=== PATIENT | female | born 1975 | race African-American/Black ===

== ENCOUNTER → 2022-01-02 10:10 | Outpatient (CLI) | payer BC, SELFPAY ==
--- NOTE | ~2022-01-02 | MM_ITS ---
EXAMINATION: MM screening brenda BI w nita HISTORY: Screening mammogram TECHNIQUE: Craniocaudal and mediolateral oblique 3-D tomosynthesis images were obtained and synthetic 2-D images were generated. CAD analysis was submitted and interpreted. COMPARISON: No prior mammogram is available for comparison at this institution. BREAST PARENCHYMAL COMPOSITION: There are scattered areas of fibroglandular density. FINDINGS: RIGHT BREAST: There is a 5 mm mass in the middle third of the outer breast best appreciated on the cr aniocaudal view. LEFT BREAST: There is no evidence of suspicious mass, calcification, or architectural distortion to s uggest malignancy. IMPRESSION: 1. Right breast mass which may represent the patient's baseline however no comparison is currently av ailable. 2. Comparison with prior mammograms is necessary. BI-RADS Category 0: Incomplete: Needs comparison with prior mammograms. Reviewed, dictated and finalized at location A. E MAIL SYSTEM ADMINISTRATOR IMPRESSION: 1. Right breast mass which may represent the patient's baseline however no comp arison is currently available. 2. Comparison with prior mammograms is necessary. BI-RADS Category 0: Incomplete: Needs comparison with prior mammograms.
== END ==
PROVIDERS: Visit Provider Obstetrics & Gynecology
DX: Z12.31 Encounter for screening mammogram for malignant neoplasm of breast (principal); R92.8 Other abnormal and inconclusive findings on diagnostic imaging of breast
CPT/HCPCS: 77063; 77067

== ENCOUNTER → 2022-02-03 08:23 | Outpatient (CLI) | payer BC, SELFPAY ==
--- NOTE | ~2022-02-03 | MMUS_ITS ---
EXAMINATION: MM diagnostic brenda RT w nita, US breast RT limited HISTORY: Right breast mass TECHNIQUE: Additional 3-D tomosynthesis images of the right breast were performed and synthetic 2-D i mages were generated. CAD analysis was submitted and interpreted. High resolution right breast ultras ound was performed. COMPARISON: 01/02/2022, 01/17/2019 BREAST PARENCHYMAL COMPOSITION: There are scattered areas of fibroglandular density. FINDINGS: MAMMOGRAPHIC FINDINGS: There is a 7 mm x 3 mm oval, obscured, equal density mass in the middle third of the outer breast at the 9:00 location 7.5 cm from the nipple. ULTRASOUND: There is a 5 mm x 2 mm oval, circumscribed, parallel, complex cystic and solid mass at the 10:00 loca tion 6 cm with no posterior features or internal vascularity corresponding to the mammographic findin g in question. IMPRESSION: 1. Probably benign right breast mass. 2. Recommend 6 month follow-up right diagnostic mammogram and ultrasound. BI-RADS category 3, probably benign findings. Reviewed, dictated and finalized at location A. IMPRESSION: 1. Probably benign right breast mass. 2. Recommend 6 month follow-up right diagnostic mammogram and ultrasound. BI-RADS category 3, probably benign findings.
== END ==
PROVIDERS: PCP Physician Assistant; Visit Provider Obstetrics & Gynecology
DX: R92.8 Other abnormal and inconclusive findings on diagnostic imaging of breast (principal)
CPT/HCPCS: 76642; 77061; 77065; G0279

== ENCOUNTER 2025-06-09 09:55 | Outpatient (CLI) | payer OTHER, SELFPAY ==
--- NOTE | ~2025-06-09 | MM_ITS ---
EXAMINATION: MM screening brenda BI w nita HISTORY: Screening TECHNIQUE: Craniocaudal and mediolateral oblique 3-D tomosynthesis images were obtained and synthetic 2-D images were generated. CAD analysis was submitted and interpreted. COMPARISON: Comparison to multiple prior studies sequentially, with oldest reviewed study dated 01/17. BREAST PARENCHYMAL COMPOSITION: Not dense: There are scattered areas of fibroglandular density. FINDINGS: There is no evidence of suspicious mass, calcification, or architectural distortion to sugg est malignancy in either breast. There has been no suspicious interval change. IMPRESSION: 1. No mammographic evidence of malignancy. 2. Recommend routine screening mammography in one year. BI-RADS Category 1: Negative Reviewed, dictated and finalized at location B.
--- OUTSIDE RECORDS SUMMARY | 2025-06-09 09:59 | XMS_ITS | Clinical Summary ---
Author Organization [facility] Address [address] [place] [address] Care Team Providers Care Registered Nurses Name Role Phone Elvis Robin MD Primary Care Provider [phone] Source Comments [facility],non-select specialty hospital Affiliates and Associated Physician Practices is amultiple site organization consisting of ambulatory clinics and hospital sitesin [place], [place], [place]. This disclosure is being madepursuant to the Care Everywhere program and may not contain all information available regarding this patient. 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 Family History Medical History Relation Name Comments High Cholesterol Father High Cholesterol Mother Relation Name Status Comments Father Mother Social History Tobacco Use Types Packs/Day Years Used Date Smoking Tobacco: Never Smokeless Tobacco: Never Alcohol Use Standard Drinks/Week Comments No 0 (1 standard drink = 0.6 oz pur e alcohol) Comments Unknown Sex and Gender Information Value Date Recorded Sex Assigned at Not on file Legal Sex Female 5:34 PM SOLAR INSTALLATION MANAGER Gender Identity Not on file Sexual Orientation Not on file Last Filed Vital Signs Vital Sign Reading Time Taken Comments Blood Pressure 149/86 12/18/2017 10:19 AM SOLAR INSTALLATION MANAGER Pulse 93 12/18/2017 10:19 AM SOLAR INSTALLATION MANAGER Temperature 37.4 C (99.4 F) 11/28/2016 10:01 AM SOLAR INSTALLATION MANAGER Respiratory Rate 14 11/28/2016 10:01 AM SOLAR INSTALLATION MANAGER Oxygen Saturation 99% 05/23/2016 10:46 AM CDT Inhaled Oxygen Concentration - - Weight 60.8 kg (134 lb) 12/18/2017 10:19 AM SOLAR INSTALLATION MANAGER Height 157.5 cm (5' 2) 12/18/2017 10:19 AM SOLAR INSTALLATION MANAGER Body Mass Index 24.51 12/18/2017 10:19 AM SOLAR INSTALLATION MANAGER Plan of Treatment Health Maintenance Due Date Last Done Comments COLOGUARD (AGES 45-75) - COL ON CA SCREENING 1974 COLON MONITORING 1974 COLONOSCOPY - COLON CA SCREENING 1974 CT COLONOGRAPHY - COLON CA SCREENING 1974 Colorectal Cancer Screening 1974 FIT - COLON CA SCREENING 1974 FLEX SIG - COLON CA SCREENING 1974 LIPID TESTING 1974 HIV SCREENING 1989 HEPATITIS C SCREENING 01/23/1992 DTAP/TDAP/TD VACCINES (1 - Tdap) 1993 HEPATITIS B VACCINE (1 of 3 - 19+ 3-dose series) 1993 MAMMOGRAM 01/17/2021 01/17/2019 PNEUMOCOCCAL VACCINE 50+ (1 of 1 - PCV) 01/28/2024 ZOSTER VACCINE (1 of 2) 01/28/2024 COVID-19 VACCINE (1 - 2023-2 5 season) 2024 DEPRESSION SCREENING 11/23/2024 INFLUENZA VACCINE (#1) 2025 HIB VACCINE Aged Out No longer eligi ble based on patient's age to complete this topic HPV VACCINE Aged Out No longer eligi ble based on patient's age to complete this topic MENINGOCOCCAL (Group B) VACC INE SHARED DECISION-MAKING Aged Out No longer eligibl e based on patient's age to complete this topic MENINGOCOCCAL GROUPS A/C/Y/W VACCINE Aged Out No longer eligible b ased on patient's age to complete this topic Insurance [employer] Care Teams Registered Nurses Relationship Specialty Start Date End Date Elvis Robin MD [address] [place] [address] [address] [place] [phone] PCP - General 08/11/13
--- OUTSIDE RECORDS SUMMARY | 2025-06-09 09:59 | XMS_ITS | Clinical Summary ---
Author Organization [facility] Address [address] [place] [address] Care Team Providers Care Line Analyst Name Role Phone Naomie Hurst PA-C Primary Care Provider [phone] Allergies No known active allergies Medications Blood Pressure Monitor KitIndications:Elev ated blood pressure reading Take blood pressure daily 1 kit Active multi vitamin/minerals (THERA-M ENHANCED) tablet Take 1 tablet by mouth daily. Active rosuvastatin (CRESTOR) 5 MG tabletIndications:H yperlipidemia, unspecified hyperlipidemia type TAKE 1 TABLET(5 MG) BY MOUTH DAILY 90 tablet 1 Active Active Problems Problem Noted Date Diagnosed Date Medication monitoring encounter 10/13/2024 Refused influenza vaccine 10/05/2023 Hot flashes 10/05/2023 White coat syndrome without hypertension 022 Hyperlipidemia, unspecified hyperlipidemia type 07/29/2021 Vitamin D deficiency 07/29/2021 Resolved Problems Problem Noted Date Diagnosed Date Resolved Date Screening for colon cancer 10/14/2023 1 12/27/2022 Malignant neoplasm of palate ([facility]) 12/14/2013 07/30/2021 Encounters Date Type Department Care Team Description 04/11/2025 9:40 AM CDT Office Visit [facility] Family Medicine - [place] [phone] Naomie Hurst PA-C Follow Up (Follow up ) 04/11/2025 Travel from Last 3 Months Family History Medical History Relation Comments No Known Problems Brother 1 No Known Problems Brother 2 No Known Problems Daughter Hyperlipidemia Father Hyperlipidemia Mother Relation Status Comments Brother 1 Alive Brother 2 Alive Daughter Alive Father Alive Mother Alive Social History Tobacco Use Types Packs/Day Years Used Date Smoking Tobacco: Never Smokeless Tobacco: Never Tobacco Cessation:Counseling Given: No Alcohol Use Standard Drinks/Week Comments Not Currently 0 (1 standard drink = 0.6 oz pur e alcohol) PHQ-2 Answer Date Recorded Patient Health Questionnaire-2 Score 0 04/11/2025 Comments No Sex and Gender Information Value Date Recorded Sex Assigned at Female 09/19/2022 8:41 AM CDT Legal Sex Female 7:25 PM CDT Gender Identity Female 09/19/2022 8:41 AM CDT Sexual Orientation Straight 09/19/2022 8: 41 AM CDT Last Filed Vital Signs Vital Sign Reading Time Taken Comments Blood Pressure 120/80 04/11/2025 9:39 AM CDT Pulse 84 04/11/2025 9:39 AM CDT Temperature 35.7 C (96.3 F) 04/11/2025 9:39 AM CDT Respiratory Rate 18 04/11/2025 9:39 AM CDT Oxygen Saturation 98% 04/11/2025 9:39 AM CDT Inhaled Oxygen Concentration - - Weight 59.1 kg (130 lb 3.2 oz) 04/11/2025 9:39 A M CDT Height 157.5 cm (5' 2) 04/11/2025 9:39 AM CDT Body Mass Index 23.81 04/11/2025 9:39 AM CDT Plan of Treatment Upcoming Encounters Date Type Department Care Team (Late st Contact Info) Description 04/12/2026 9:20 AM CDT Office Visit [facility] Family Medicine - [place] [address] [place] [phone] Naomie Hurst PA-C [address] [place] [address] Health Maintenance Due Date Last Done Comments Cervical Cancer Screening Pap Smear (Age 30 to 64) Every 3 Years 1974 Annual Physical 1977 DTaP, Tdap and Td Vaccines (1 - Tdap) 1993 Hepatitis B Vaccines (1 of 3 - 19+ 3-dose series) 1993 Cervical Cancer Screening Pap with HPV Testing (Age 30 to 64) Every 5 Years 01/28/2004 Mammogram Screening 01/17/2021 01/17/2019, 01/17/2019, 10/11/2018, Additional history exists Pneumococcal Vaccine: 50+ Years (1 of 1 - PCV) 01/28/2024 Zoster Vaccines (1 of 2) 01/28/2024 Cervical Cancer Screening with HPV 10/13/2025 Postponed from 01/28/2004 (Going to Outside Clinic) COVID-19 Vaccine ( - season) 2025 Postponed from 07/24/2024 (Going to Outside Clinic) Colorectal Cancer Screening Colonoscopy (10 Years) 02/03/2034 02/04/2024 Hepatitis C Completed 04/06/2024 PHQ-2 (Physician [place]) Completed 04/11/2025 Meningococcal B Vaccine Aged Out No l onger eligible based on patient's age to complete this topic Meningococcal Vaccine Aged Out No maribeth don eligible based on patient's age to complete this topic RSV Immunizations Under 20 Months Aged Out No longer eligible based on patient's age to complete this topic Procedures Procedure Name Priority Date/Time Associated Diagnosis Comments VITAMIN D, 25 OH 04/05/2025 9:03 AM CDT LIPID PANEL Routine 04/05/2025 9:03 AM CDT Hyperlipidemia, unspecified hyperlipidemia type COMPREHENSIVE METABOLIC PANEL Routine 04/05/2025 9:03 AM CDT Medication monitoring encounter CBC W/DIFF AUTOMATED Routine 04/05/2025 9:03 AM CDT Screening for deficiency anemia HEPATITIS C ANTIBODY W/RFX TO HCV RNA Routine 04/06/2024 9:21 AM CDT Need for hepatitis C screening test MG DIAG W RAFY RT DIGI Routine 01/17/2019 9:28 AM EDGER RUNNER Mass of right breast from Last 3 Months or Most Recently Relevant to Health Maintenance Results * (ABNORMAL) COMPREHENSIVE METABOLIC PANEL (04/05/2025 9:03 AM CDT) [facility] GLUCOSE 94 70 - 99 mg/dL [facility] BUN 13 6 - 24 mg/dL [facility] CREATININE S/P/B 0.81 0.57 - 1.00 mg/dL [facility] GFR ESTIMATE 88 >59 mL/min/1.7 3 [facility] 1 BUN CREATININE RATIO 16 9 - 23 [facility] 1 SODIUM S/P/B 141 134 - 144 mmol/L [facility] 1 POTASSIUM S/P/B 4.2 3.5 - 5.2 mmol/L [facility] 1 CHLORIDE S/P/B 101 96 - 106 mmol/L [facility] CO2 24 20 - 29 mmol/L [facility] 1 CALCIUM S/P/B 10.0 8.7 - 10.2 mg/dL [facility] 1 TOTAL PROTEIN S/P/B 7.2 6.0 - 8.5 g/dL [facility] 1 ALBUMIN S/P/B 4.7 3.8 - 4.9 g/dL [facility] 1 GLOBULIN 2.5 1.5 - 4.5 g/dL [facility] 1 BILIRUBIN TOTAL S/P/B 0.4 0.0 - 1.2 mg/dL [facility] 1 ALKALINE PHOSPHATASE S/P/B 133(H) 44 - 121 IU/L [facility] AST 14 0 - 40 IU/L [facility] ALT 10 0 - 32 IU/L [facility] 1 04/05/2025 9:03 AM CDT 04/05/2025 Narrative [facility] - 04/06/2025 7:09 AM CDT Performed at: 01 - [facility] [id number] Information Resources Manager: Antonio Lyle PhD, Phone: [phone] us Naomie Hurst PA-C LABORATORY Final Resu lt [facility] [address] [place] [address] [facility] * LIPID PANEL (04/05/2025 9:03 AM CDT) CHOLESTEROL 180 100 - 199 mg/dL [facility] TRIGLYCERIDES 48 0 - 149 mg/dL [facility] HDL 72 >39 mg/dL [facility] VLDL CALCULATION 10 5 - 40 mg/dL [facility] 1 LDL (CALCULATED) 98 0 - 99 mg/dL [facility] 1 04/05/2025 9:03 AM CDT 04/05/2025 Narrative [facility] - 04/06/2025 7:09 AM CDT Performed at: 01 - [facility] [id number] Information Resources Manager: Antonio Lyle PhD, Phone: [phone] Naomie Hurst PA-C LABORATORY Final Resu lt [facility] [address] [place] [address] [facility] * CBC W/DIFF AUTOMATED (04/05/2025 9:03 AM CDT) Pathologist [facility] WBC 5.3 3.4 - 10.8 x10E3/uL [facility] RBC 4.47 3.77 - 5.28 x10E6/uL [facility] HGB 13.4 11.1 - 15.9 g/dL [facility] 1 HCT 41.9 34.0 - 46.6 % [facility] 1 MCV 94 79 - 97 fL [facility] 1 MCH 30.0 26.6 - 33.0 pg [facility] 1 MCHC 32.0 31.5 - 35.7 g/dL [facility] 1 RDW 12.2 11.7 - 15.4 % [facility] 1 PLATELET COUNT 249 150 - 450 x10E3/uL [facility] 1 NEUTROPHILS % 56 Not Estab. % [facility] LYMPHOCYTES % 33 Not Estab. % [facility] 1 MONOCYTES % 9 Not Estab. % [facility] 1 EOSINOPHILS % 1 Not Estab. % [facility] 1 BASOPHILS % 1 Not Estab. % [facility] 1 ABS. NEUTROPHILS 2.9 1.4 - 7.0 x10E3/uL [facility] 1 ABS. LYMPHOCYTES 1.8 0.7 - 3.1 x10E3/uL [facility] 1 MONOCYTES 0.5 0.1 - 0.9 x10E3/uL [facility] 1 ABS. EOSINOPHILS 0.0 0.0 - 0.4 x10E3/uL [facility] 1 ABS. BASOPHILS 0.1 0.0 - 0.2 x10E3/uL [facility] 1 ABS. IMMATURE GRANULOCYTES 0 Not Estab. % [facility] 1 ABS. IMMATURE GRANULOCYTES 0.0 0.0 - 0.1 x10E3/uL [facility] 1 04/05/2025 9:03 AM CDT 04/05/2025 Narrative [facility] - 04/06/2025 7:09 AM CDT Performed at: 01 - [facility] [id number] Information Resources Manager: Antonio Lyle PhD, Phone: [phone] us Naomie Hurst PA-C LABORATORY Final Resu lt [facility] [address] [place] [address] [facility] * VITAMIN D, 25 [place] (04/05/2025 9:03 AM CDT) Pathologist [facility] VITAMIN D 25 HYDROXY S/P/B 41.9 30.0 - 100.0 ng/mL [facility] 1 Comment: Vitamin D deficiency has been defined by the [place] of Medicine and an Endocrine Society practice guideline as a level of serum 25-OH vitamin D less than 20 ng/mL (1,2). The Endocrine Society went on to further define vitamin D insufficiency as a level between 21 and 29 ng/mL (2). 1. IOM ([place] of Medicine). 2010. Dietary reference intakes for calcium and D. [place]: The National Academies Press. 2. Danelle MF, Skylar [place], Norm SHOEMAKER, et al. Evaluation, treatment, and prevention of vitamin D deficiency: an Endocrine Society clinical practice guideline. JCEM. 2010; 96(7):1911-30. 04/05/2025 9:03 AM CDT 04/05/2025 Narrative [facility] - 04/06/2025 7:09 AM CDT Performed at: [facility] [id number] Information Resources Manager: Antonio Lyle PhD, Phone: [phone] Naomie SAHUC LABORATORY Final Resu lt Performing Organization Address [facility] Phone Number [facility] [address] [place] [address] [facility] * HEPATITIS C ANTIBODY W/RFX TO HCV RNA (04/06/2024 9:21 AM CDT) HEPATITIS C AB Non Reactive Non Reacti [facility] 1 INTERPRETATION Comment [facility] 1 Comment: Not infected with HCV unless early or acute infection is suspected (which may be delayed in an immunocompromised individual), or other evidence exists to indicate HCV infection. 04/06/2024 9:21 AM CDT 04/06/2024 Narrative [facility] - 04/07/2024 11:37 AM CDT Performed at: [address] [id number] Information Resources Manager: Antonio Lyle PhD, Phone: [phone] Result [facility] Naomie SAHUC LABORATORY Final Resu lt Performing Organization Address [facility] Phone Number [facility] [address] [place] [id number] [facility] * MG DIAG W RAFY RT DIGI (01/17/2019 9:28 AM EDGER RUNNER) Anatomical Region Laterality Modality Breast Right Mammography 01/17/2019 9:50 AM EDGER RUNNER Impressions 01/17/2019 9:54 AM EDGER RUNNER =====IMPRESSION:===== Mixed echogenicity lesion 10:30 position right breast slightly decreased in size. However, partially defined hypoechoic lesion posteriorly to the mixed echogenicity lesion, and measuring up to 1.8 cm. This second area has some posterior acoustical shadowing. This area is indeterminate. Rebiopsy should be considered. ASSESSMENT: ACR BI-RADS Category 4B - Suspicious (intermediate). RECOMMENDATION: 1: Needle biopsy right COMMENTS: Narrative 01/17/2019 9:54 AM EDGER RUNNER EXAMINATION: Digital right diagnostic mammogram with 3-D tomosynthesis and limited right breast ultrasound. [id number] EXAM DATE/TIME: 01/17/2019 8:47 AM REASON FOR EXAM: FOLLOW UP Recent benign biopsies right breast. Persistent focal parenchymal asymmetry right breast. Short-term follow-up. COMPARISON: Right mammographic images dating back to May 2018.] Ultrasounds dating back to May 2018. TECHNIQUE: Digital diagnostic mammography of the right breast was performed in addition to 3-D Tomosynthesis technique. This study was read with the assistance of a computer-aided detection system. TISSUE DENSITY: The breast tissue contains scattered fibroglandular densities. FINDINGS: 2 biopsy clips are again noted within the right breast. Some associated irregular shaped tissue is seen adjacent to the biopsy clip upper outer quadrant right breast approximately 10:30 position. This is similar appearance to prior post biopsy mammogram. No new mass lesion. No suspicious calcifications. Ultrasound imaging right breast 10:30 position 7 cm from the nipple was again performed. Mixed echogenicity lesion is again noted. This previously measured up to 2.13 cm. Currently measuring up to 2.0 cm. Posterior to this Echogenicity lesion is a hypoechoic area with posterior acoustical shadowing. This hypoechoic area is partially defined and measures up to 1.8 cm. The posterior acoustical shadowing in this region makes this area indeterminate and rebiopsy should be considered. Christopher Alexandre MD MAMMO Final Result from Last 3 Months or Most Recently Relevant to Health Maintenance Insurance Care Teams Line Analyst Relationship Specialty Start Date End Date Naomie Hurst PA-C [address] [place] [phone] PCP - General PHYSICIAN ACADEMIC ADVISEMENT DIRECTOR 07/30/21
--- OUTSIDE RECORDS SUMMARY | 2025-06-09 09:59 | XMS_ITS | Clinical Summary ---
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 Gender Identity Not on file Sexual Orientation Not on file Plan of Treatment Health Maintenance Due Date Last Done Comments DTAP/TDAP/TD VACCINES (1 - Tdap) 1993 HEPATITIS B VACCINES (1 of 3 - 19+ 3-dose series) 05/1993 HPV/Cotest (21-29) 1995 CERVICAL CANCER SCREENING 01/28/2004 HPV/Cotest (30-65) 01/28/2004 PAP SMEAR 01/28/2004 BREAST CANCER SCREENING 2014 COLORECTAL SCREENING 2019 Colorectal Cancer Screening 2019 FIT-DNA Q 3 years 2019 FIT/FOBT Q 1 year 2019 Flex Sig/CT Colonography Q 5 years 2019 ZOSTER VACCINE (1 of 2) 01/28/2024 INFLUENZA VACCINE (#1) 2025 Insurance [employer] Care Teams Revolving Inventory Clerk Relationship Specialty Start Date End Date Not Found, Stl NO ADDRESS ON FILE PCP - General 10/19/12
== END 2025-06-09 09:56 | disposition home or self-care (01) ==
LOC: ANHIMG 09:57
PROVIDERS: PCP Physician Assistant; Visit Provider Obstetrics & Gynecology
DX: Z12.31 Encounter for screening mammogram for malignant neoplasm of breast (principal)
CPT/HCPCS: 77063; 77067